=== PATIENT | male | born 1980 | race African-American/Black ===

== ENCOUNTER → 2018-11-16 | Outpatient (REF) | payer OTHER ==
[2018-11-16 14:39] LABS: BLOOD UREA NITROGEN 11 MG/DL (7-18); CPK CREATINE PHOSPHOKINASE 173 U/L (39-308); CREATININE FOR GFR 1.01 MG/DL (0.70-1.30); GLOMERULAR FILTRATION RATE > 60.0 (>60); RHEUMATOID FACTOR QUANT < 10.0 IU/ML (<15.0); TOTAL PROTEIN 7.7 GM/DL (6.4-8.2)
[2018-11-16 14:41] LABS: FOLATE > 24.0 NG/ML (>5.4); VITAMIN B12 LEVEL 962 PG/ML (247-911)
[2018-11-18 10:29] LABS: ALBUMIN 4.33 GM/DL (3.29-5.55); ALBUMIN % 56.2 % (55.8-66.1)
[2018-11-18 10:30] LABS: ALPHA-1-GLOBULIN % 4.5 % (2.9-4.9); ALPHA-1-GLOBULINS 0.35 GM/DL (0.17-0.41); ALPHA-2-GLOBULINS 0.62 GM/DL (0.42-0.99); BETA-1-GLOBULINS 0.49 GM/DL (0.28-0.60); BETA-1-GLOBULINS % 6.3 % (4.7-7.2); BETA-2-GLOBULINS 0.43 GM/DL (0.19-0.55); BETA-2-GLOBULINS % 5.6 % (3.2-6.5); GAMMA GLOBULIN % 19.4 % (11.1-18.8); GAMMA GLOBULINS 1.49 GM/DL (0.65-1.58)
[2018-11-21 08:56] LABS: ANTI DS-DNA AB <1:10 titer (.); ANTINUCLEAR ANTIBODIES DIRECT Negative (Negative); CERULOPLASMIN 29.7 mg/dL (16.0-31.0); CYCLIC CITRULLINATED PEPTIDE 3 units (0-19); LEAD BLOOD ADULT <1 ug/dL (0-4); Lyme Disease IgG Ab 18 kDa Ban Absent (.); Lyme Disease IgG Ab 23 kDa Ban Absent (.); Lyme Disease IgG Ab 28 kDa Ban Absent (.); Lyme Disease IgG Ab 30 kDa Ban Absent (.); Lyme Disease IgG Ab 39 kDa Ban Absent (.); Lyme Disease IgG Ab 41 kDa Ban Present (.); Lyme Disease IgG Ab 45 kDa Ban Absent (.); Lyme Disease IgG Ab 58 kDa Ban Absent (.); Lyme Disease IgG Ab 66 kDa Ban Absent (.); Lyme Disease IgG Ab 93 kDa Ban Absent (.); Lyme Disease IgG West Blot Int Negative (.); Lyme Disease IgM Ab 23 kDa Ban Absent (.); Lyme Disease IgM Ab 39 kDa Ban Absent (.); Lyme Disease IgM Ab 41 kDa Ban Absent (.); Lyme Disease IgM Ab Quantitati <0.80 index (0.00-0.79); Lyme Disease IgM West Blot Int Negative (.); MERCURY LEVEL None Detected ug/L (0.0-14.9); SJOGREN'S ANTI SS-A <0.2 AI (0.0-0.9); SJOGREN'S ANTI SS-B <0.2 AI (0.0-0.9); VITAMIN B1 LEVEL WHOLE BLOOD 94.9 nmol/L (66.5-200.0); VITAMIN E(ALPHA TOCOPHEROL) 7.4 mg/L (5.9-19.4); VITAMIN E(GAMMA TOCOPHEROL) 1.1 mg/L (0.7-4.9)
== END ==
LOC: M LABNEURO 09:06
PROVIDERS: ATTEND Psychiatry & Neurology Neurology
DX: R53.1 Weakness (principal)

== ENCOUNTER 2018-11-24 05:13 | Emergency (ER) | payer OTHER ==
[~2018-11-24] VITALS: Ht 175.3 cm; Wt 90.9 kg
[2018-11-24 05:14] VITALS: BP 122/75
[2018-11-24 05:42] LABS: APPEARANCE, URINE HAZY (CLEAR); BACTERIA, URINE AUTO NEGATIVE (NEGATIVE); BILIRUBIN, URINE AUTO NEGATIVE (NEGATIVE); BLOOD, URINE BLOOD NEGATIVE (NEGATIVE); COLOR, URINE STRAW (YELLOW); GLUCOSE, URINE (UA) AUTO NEGATIVE (NEGATIVE); KETONE, URINE AUTO NEGATIVE (NEGATIVE); LEUKOCYTE ESTERASE, URINE AUTO 3+ (NEGATIVE); NITRITE, URINE AUTO NEGATIVE (NEGATIVE); PROTEIN, URINE AUTO NEGATIVE (NEGATIVE); RBC, URINE AUTO 6 /HPF (0-3); SPECIFIC GRAVITY URINE AUTO 1.016 (1.002-1.035); SQUAMOUS EPITHELIAL CELL UR AU 0 /HPF (0-6); UROBILINOGEN, URINE AUTO 0.2 mg/dL (0.0-2.0); WBC, URINE AUTO 167 /HPF (0-3)
[2018-11-24] MEDS ORDERED: AZITHROMYCIN 250 MG TAB PO ONE (06:30)
[2018-11-24] MEDS ORDERED: cefTRIAXone SOD 250 MG VIAL (J0696) IM ONE (06:30)
[2018-11-24] MEDS ORDERED: LIDOCAINE 1% SDV 5 ML VIAL DILUENT ONE (06:30)
[2018-11-24 07:06] LABS: CHLAMYDIA DNA AMPLIFICATION NEGATIVE (NEGATIVE); GC DNA AMPLIFICATION POSITIVE (NEGATIVE)
== END 2018-11-24 06:36 | disposition home or self-care (01) ==
LOC: M ED 05:13
DX: N34.1 Nonspecific urethritis (principal)
CPT/HCPCS: 81001; 87491; 87591; 96372; 99283; J0696